=== PATIENT | male | born 1990 | race Native Hawaiian/Other Pacific Islander ===

== ENCOUNTER 2018-04-06 06:18 | Emergency (ER) | payer OTHER ==
[~2018-04-06] VITALS: Ht 167.6 cm; Wt 86.2 kg
[2018-04-06 07:28] VITALS: BP 112/78; TEMP 98.9
== END 2018-04-06 07:28 | disposition home or self-care (01) ==
LOC: ED 06:18
DX: T23.402A Corrosion of unspecified degree of left hand, unspecified site, initial encounter (principal); T23.401A Corrosion of unspecified degree of right hand, unspecified site, initial encounter; T65.91XA Toxic effect of unspecified substance, accidental (unintentional), initial encounter; T32.0 Corrosions involving less than 10% of body surface; Y92.89 Other specified places as the place of occurrence of the external cause
CPT/HCPCS: 96372; 99282; J2930

== ENCOUNTER 2018-11-24 07:50 | Emergency (ER) | payer OTHER ==
[~2018-11-24] VITALS: Ht 167.6 cm; Wt 86.2 kg
[2018-11-24 08:00] VITALS: TEMP 98.7
[2018-11-24 10:10] VITALS: BP 116/72
== END 2018-11-24 10:10 | disposition home or self-care (01) ==
LOC: ED 07:50
DX: M79.18 Myalgia, other site (principal); R07.81 Pleurodynia; R07.89 Other chest pain; R00.1 Bradycardia, unspecified
CPT/HCPCS: 93005; 96372; 99283; J1885

== ENCOUNTER 2019-09-12 12:53 | Emergency (ER) | payer OTHER ==
[~2019-09-12] VITALS: Ht 167.6 cm; Wt 82.6 kg
[2019-09-12 13:09] VITALS: TEMP 98.1
[2019-09-12 14:08] LABS: PLATELET COUNT 214 K/uL (142-355)
[2019-09-12 14:18] LABS: POTASSIUM 3.9 mmol/L (3.6-5.2)
[2019-09-12 15:35] VITALS: BP 128/62
== END 2019-09-12 15:35 | disposition home or self-care (01) ==
LOC: ED 12:53
PROVIDERS: Family Medicine
DX: J32.8 Other chronic sinusitis (principal); K02.9 Dental caries, unspecified; M26.603 Bilateral temporomandibular joint disorder, unspecified
CPT/HCPCS: 80053; 85027; 96372; 99283; J1885